=== PATIENT | male | born 1960 | race Caucasian/White ===

== ENCOUNTER 2017-06-20 20:01 | Emergency (ER) | payer SELFPAY ==
[2017-06-20] MEDS ORDERED: DUONEB *Not for PRN Use IH ONE (20:17)
--- NOTE | 2017-06-20 20:52 | Emergency Department Report ---
ED Asthma HPI - General Chief Complaint: Adult Asthma Stated Complaint: ASTHMA ATTACK Time Seen by Provider: 06/20/17 20:51 Source: patient Mode of arrival: Wheelchair Limitations: No Limitations - History of Present Illness Initial Comments: 56-year-old man with history of asthma presents with coughing and wheezing since this morning. He was using his usual inhaler medications, but they have not worked. He has discomfort in his chest whenever he coughs. He works outdoors in construction, was not particularly active today, has not had any signs of illness, but noticed that after he had gone outside, he had developed some congestion in his throat, which progressed to wheezing, but was not responsive to used his home medications of albuterol, rescue inhaler of Proventil, and he comes for further treatment. He's had some cough, associated with his wheezing, and reports that there is a moderate sharp discomfort in the anterior lateral chest wall when he coughs deeply. He has no tightness in his chest, no pressure sensation, and no particular difficulty breathing, no particular difficulty speaking. - Related Data Previous Rx's Medication Instructions Recorded Last Taken Type predniSONE [Deltasone] 20 mg PO QDAY #21 tablet 06/20/17 Unknown Rx Allergies Allergy/AdvReac Type Severity Reaction Status Date / Time No Known Allergies Allergy Verified 06/20/17 20:51 ED Review of Systems ROS: Stated complaint: ASTHMA ATTACK Other details as noted in HPI Constitutional: denies: chills, fever, weakness ENT: other (throat congestion) Respiratory: cough, shortness of breath, wheezing Cardiovascular: chest pain (sharp, caused by coughing). denies: palpitations, syncope Endocrine: no symptoms reported Gastrointestinal: denies: abdominal pain, nausea, diarrhea Musculoskeletal: denies: back pain, joint swelling, arthralgia Skin: denies: rash, lesions Neurological: denies: headache, weakness, paresthesias Psychiatric: denies: anxiety, depression ED Past Medical Hx - Past Medical History Hx Asthma: Yes - Surgical History Past Surgical History?: No - Social History Smoking Status: Never Smoker Substance Use Type: Alcohol - Medications Home Medications: Home Medications Medication Instructions Recorded Confirmed Last Taken Type predniSONE [Deltasone] 20 mg PO QDAY #21 tablet 06/20/17 Unknown Rx ED Physical Exam - General Limitations: No Limitations General appearance: alert, in no apparent distress, other (speaks easily without limitation) - Head Head exam: Present: atraumatic, normocephalic - Eye Eye exam: Present: normal appearance, PERRL - ENT ENT exam: Present: normal exam - Neck Neck exam: Present: normal inspection - Respiratory Respiratory exam: Present: wheezes. Absent: respiratory distress, rales, rhonchi, chest wall tenderness, decreased breath sounds - Cardiovascular Cardiovascular Exam: Present: regular rate, normal rhythm. Absent: systolic murmur, diastolic murmur, rubs, gallop - GI/Abdominal GI/Abdominal exam: Present: soft, normal bowel sounds - Rectal Rectal exam: Present: deferred - Extremities Exam Extremities exam: Present: normal inspection. Absent: pedal edema - Back Exam Back exam: Absent: CVA tenderness (R), CVA tenderness (L) - Neurological Exam Neurological exam: Present: alert, oriented X3 - Psychiatric Psychiatric exam: Present: normal affect, normal mood - Skin Skin exam: Present: warm, dry. Absent: diaphoretic, pallor ED Course Vital Signs 06/20/17 06/20/17 20:12 21:49 Temperature 98.6 F Pulse Rate 81 80 Respiratory 20 24 Rate Blood Pressure 163/116 Blood Pressure 154/114 [Left] O2 Sat by Pulse 96 99 Oximetry - Reevaluation(s) Reevaluation #1: 06/20/17 23:25 Patient significantly improved after 2 rounds of albuterol treatment, 125 mg of Solu-Medrol, as 100% oxygenation, and lungs still have some faint end expiratory wheeze, but patient has 100% oxygenation, feels much better, and feels ready to go home. ED Medical Decision Making - Lab Data Result diagrams: 06/20/17 21:05 06/20/17 21:05 - EKG Data -: EKG Interpreted by Me EKG shows normal: sinus rhythm, axis (left axis deviation at -36), intervals ( QT interval normal 408 ms corrected), QRS complexes (normal QRS complexes, mild left axis at -36), ST-T waves (no ST elevation, but there are marked peaked T waves in the precordial leads and inferior leads) Rate: normal - EKG Data When compared to previous EKG there are: previous EKG unavailable Interpretation: other (peaked T waves without ST elevation, worrisome for hyperkalemia, or early hyperacute findings,) - Medical Decision Making Patient had acute exacerbation of wheezing and asthma, likely as a result of environmental exposure, possibly with change of weather as Temperatures have been warming. He will be placed on rest, given a short course of declining dose of steroids, and he has sufficient albuterol medications at home. One- week follow-up recommended with doctor. To return to the emergency department if worse any time. Critical Care Time: No Critical care attestation.: If time is entered above; I have spent that time in minutes in the direct care of this critically ill patient, excluding procedure time. ED Disposition Clinical Impression: Respiratory distress, acute Asthma attack Qualifiers: Asthma severity: moderate Disposition: DC-01 TO HOME OR SELFCARE Is pt being admited?: No Does the pt Need Aspirin: No Condition: Stable Prescriptions: predniSONE [Deltasone] 20 mg PO QDAY #21 tablet Referrals: REHANA FONG MD [Primary Care Provider] - 3-5 Days Time of Disposition: 23:27
[2017-06-20] MEDS ORDERED: PROVENTIL IH ONE (20:58)
[2017-06-20] MEDS ORDERED: MAGNESIUM SULFATE 1 GM in NACL 0.9% 50 ML IV ONE (20:59)
[2017-06-20 21:23] LABS: Hematocrit 45.9 % (35.5-45.6); Hemoglobin 14.8 gm/dl (11.8-15.2); Mean Corpuscular HGB Conc 32 % (32-34); Mean Corpuscular Hemoglobin 28 pg (28-32); Mean Corpuscular Volume 87 fl (84-94); Platelet Count 215 K/mm3 (140-440); Red Blood Count 5.28 M/mm3 (3.65-5.03); Red Cell Distribution Width 14.4 % (13.2-15.2)
[2017-06-20 21:36] LABS: Alanine Aminotransferase 17 units/L (7-56); Albumin 3.7 g/dL (3.9-5); BUN/Creatinine Ratio 14; Blood Urea Nitrogen 13 mg/dL (9-20); Calcium 8.8 mg/dL (8.4-10.2); Hemolysis Index 10
[2017-06-20 22:21] LABS: Basophils % (Manual) 0 % (0.0-1.8); Platelet Estimate Consistent w Auto; RBC Morphology Normal; Total Cells Counted 100
--- NOTE | 2017-06-20 22:54 | XRay Report ---
FINAL REPORT EXAM: XR CHEST 1V AP HISTORY: Asthma TECHNIQUE: upright single view chest PRIORS: None. FINDINGS: Cardiac and mediastinal contours are unremarkable. No focal pulmonary infiltrate is identified. No pleural fluid collection seen. Pulmonary vasculature is unremarkable. IMPRESSION: Negative single-view chest
[2017-06-20 23:32] VITALS: BP 136/66
== END 2017-06-20 23:37 | disposition home or self-care (01) ==
LOC: ED 20:01
DX: J45.909 Unspecified asthma, uncomplicated (principal); R06.03 Acute respiratory distress
CPT/HCPCS: 36415; 71045; 80053; 83735; 84484; 85007; 85025; 93005; 93010; 94640; 96365; 96375; 99284; J2930; J3475